=== PATIENT | male | born 1960 | race Caucasian/White ===

== ENCOUNTER 2022-12-13 17:46 | Emergency (ER) | payer BC, OTHER ==
[2022-12-13 17:59] VITALS: BP 126/85; PULSE 69; RESP 18; TEMP 98; BMI 24.7
== END 2022-12-13 19:22 | disposition home or self-care (01) ==
LOC: JER 17:46 → JERFT 17:46
DX: Z04.1 Encounter for examination and observation following transport accident (principal)
CPT/HCPCS: 99282-25